=== PATIENT | female | born 1990 | race Two or more races ===

== ENCOUNTER 2023-12-20 08:44 | Emergency (ER) | payer OTHER ==
[~2023-12-20] VITALS: Ht 154.9 cm; Wt 78.0 kg
[~2023-12-20 08:44] MED LIST: KETO10TA2 PO
[2023-12-20] MEDS ORDERED: KETOROLAC TROMETHAMINE 60 MG VIAL IM STA (09:20)
[2023-12-20] MEDS ORDERED: RINGERS SOLUTION,LACTATED 1,000 ML IV STA (09:20)
[2023-12-20 10:13] LABS: HEMATOCRIT 36.8 % (36.0-45.00); HEMOGLOBIN 12.8 g/dL (12.0-15.00); MEAN CORPUSCULAR HEMOGLOBIN 30.3 pg (27.00-32.0); MEAN CORPUSCULAR HGB CONC 34.8 g/dl (32.0-36.0); PLATELET COUNT 249 K/uL (150-450); RED BLOOD COUNT 4.22 M/uL (4.00-6.00)
[2023-12-20 10:46] LABS: PH,URINE 6.5 (5.0-8.0); URINE APPEARANCE Cloudy; URINE BILIRRUBIN Negative (NEGATIVE); URINE BLOOD Negative; URINE COLOR Yellow; URINE GLUCOSE Negative (NEGATIVE); URINE KETONE Negative (NEGATIVE); URINE LEUKOCYTE Small; URINE NITRATE Negative; URINE PROTEIN Negative (NEGATIVE); URINE UROBILINOGEN 0.2 E.U./dl
[2023-12-20 10:47] LABS: URINE BACTERIA 2283.1 uL (0.0-1933); URINE EPITHELIAL CELLS 131.4 uL (0.0-38.8); URINE RBC 6.4 uL (0.0-20.8); URINE WBC 37.7 uL (0.0-23.2)
[2023-12-20 11:01] LABS: ALBUMIN 3.4 gm/dL (3.4-5.0); ALKALINE PHOSPHATASE 90 U/L (50-136); ALT/SGPT 46 U/L (12-78); ANION GAP 9 (10.0-20.0); AST/SGOT 22 U/L (15-37); BILIRUBIN,CONJUGATED < 0.10 mg/dL (0.0-0.2); BLOOD UREA NITROGEN 13 mg/dL (7-18); BUN CREA RATIO 19 (7.0-25.0); CALCIUM 8.6 mg/dL (8.5-10.1); CARBON DIOXIDE 30 mEq/L (21-32); CHLORIDE 107 mmol/L (98-107); CREATININE SERUM 0.67 mg/dL (0.55-1.02); GFR 101.36; GLUCOSE FASTING 100 mg/dL (65-100); OSMOLALITY SERUM 283 MOSM/KG (275-295); POTASSIUM 3.92 mEq/L (3.5-5.1); SODIUM 142 mmol/L (136-145); TOTAL PROTEIN 6.8 gm/dL (6.4-8.2)
== END 2023-12-20 12:02 | disposition home or self-care (01) ==
LOC: ER 08:45
PROVIDERS: General Practice
DX: R10.2 Pelvic and perineal pain (principal); Z91.013 Allergy to seafood; Z88.8 Allergy status to other drugs, medicaments and biological substances; I99.8 Other disorder of circulatory system; D25.9 Leiomyoma of uterus, unspecified